=== PATIENT | male | born 1940 | race Caucasian/White ===

== ENCOUNTER → 2016-08-06 | Outpatient (CLI) | payer OTHER, MEDICARE ==
[~2016-08-06] MED LIST: ADVIL PM CAPLE1 EACH PO; ASPIR 8181 MG PO; ASPIRIN325 PO; AUGMENTIN 875-1 EACH PO; B & O SUPPRETT1 EAC1 RC; B-100 COMPLEX1 EAC1 PO; CALCIUM 500 +1 EAC5 PO; CIPROFLOXACIN500 M1 PO; CO Q-10100 MG PO; CO-ENZYME Q-1010 MG PO; FISH OIL 1,0001 EAC5 PO; GLUCOSAMINE &1 EAC1 PO; HYDROCODON-ACE1 EAC7 PO; IBUPROFEN 200200 M1 PO; LYRICA 50 MG50 MG PO; LYRICA 75 MG CA75 MG PO; MULTIVITAMINS PO; NEURONTIN 300300 M1 PO; NORCO 5-325 TA1 EACH PO; NORVASC 5 MG TAB5 MG PO; PLAVIX 75 MG TA75 M1 PO; PROBIOTIC1 EAC1 PO; SIMVASTATIN10 MG PO; SIMVASTATIN5 MG PO; TAMSULOSIN HCL0.4 M1 PO; VITAMIN D1000 UNI1 PO
--- NOTE | ~2016-08-06 | EKG ---
[address] [address] ELECTROCARDIOGRAM REPORT Name: TANO GUSMAN [id number] Admission: 08/06/16 Attend Phys: Elise Azul MD Discharge: Date of : 42 Report #: [id number] THIS REPORT FOR: //name// [facility] Test Date: 2016-08-06 Test Time: 16:33:12 Pat Name: TANO GUSMAN Department: Room: Gender: Senior Cost Analyst: Maranda MORENO : 1940 Requested By: Elise Azul Order Number: [id number] MD: Mohan Edwards Measurements Intervals [place] Rate: 47 P: 42 LA: 207 QRS: 56 QRSD: 107 T: 47 QT: 430 QTc: 381 Interpretive Statements Sinus bradycardia Probable left atrial enlargement Compared to ECG 03/25/2013 12:17:17 No significant change was found Electronically Signed On 08-07-2016 8:53:43 CDT by Mohan Edwards [email or web address] <ELECTRONICALLY SIGNED> By: Mohan Edwards MD, [facility] 08/07/16 0853 D: 04/1632 32 Mohan Edwards MD, FACC /EPI
== END ==
LOC: CV 16:04
DX: Z01.818 Encounter for other preprocedural examination (principal)

== ENCOUNTER → 2019-04-05 | Outpatient (CLI) | payer OTHER, MEDICARE ==
[~2019-04-05] VITALS: Ht 185.4 cm; Wt 100.4 kg
[~2019-04-05] MED LIST changes: +DIOVAN160 MG PO; +FINASTERIDE5 MG PO; -NORVASC 5 MG TAB5 MG PO; +NORVASC10 MG PO; +PROTONIX40 M1 PO
[2019-04-05 10:27] VITALS: BP 124/69
--- NOTE | 2019-04-05 10:43 | NUR ---
Pain Clinic Assessment: 1. History of Osteoarthritis: SPINE History of Rheumatoid Arthritis: NO 2. Height: 6 ft. 1 in. 185.4 cm. Weight: 221.4 lb. oz. 100.427 kg. Patient's BMI: 29.2 3. Vital Signs: BP: 124/69 Pulse: 59 Resp: 16 Temp: 02 Sat: 98 ECG Mon: 4. Pain Intensity: 4-5 5. Fall Risk: Dizziness: N Needs help standing or walking: N Fallen in the last 3 months: N Fall risk comments: 6. Patient on Blood Thinner: None 7. History of Hypertension: Y 8. Opioid Therapy greater than 6 weeks: N Opiate Contract Signed: 9. Risk Assessment Tool Provided: 10. Functional Assessment Tool: 11. Recreational Drug Use: Never Drug Type: Tobacco Use: Never Smoker Tobacco Type: Amount or Packs/day: How Many Years: Alcohol Use: Yes Frequency: Daily Quant: GLASS OF WINE
--- NOTE | 2019-04-06 12:06 | HPC ---
[facility] [address] [place] [address] PAIN MANAGEMENT CONSULTATION Name: TANO GUSMAN Room #: [facility].#: [id number] Admission: 04/05/19 Attend Phys: Daryl Cruz DO Discharge: Date of : 42 Report #: [id number] THIS REPORT FOR: //name// CC: LYSSA Cruz DATE OF SERVICE: 04/05/2019 CHIEF COMPLAINT: Low back pain, left lower extremity pain with paresthesias. HISTORY OF PRESENT ILLNESS: As you know, patient is a 78-year-old male who returns today in followup visit with recurrent low back pain, left lower extremity pain with paresthesias. The patient reports previous epidural injection provided, 10/19/2018 gave 89% improvement in overall pain lasting for 5-1/2 months. He returns today in followup visit requesting to undergo next in the series of epidural injections to address residual pain for which he places pain score at 4-5/10. The patient states his pain is chronic in nature, dull, stiffness, numbness and tingling when describing pain. He indicates pain is exacerbated with activities, getting out of bed and standing, improves with repositioning, sitting and previous epidural injection. He returns today to undergo a lumbar epidural injection to address recurrent lumbar radicular pain. ALLERGIES: No known drug allergies. CURRENT MEDICATIONS: See chart. SOCIAL HISTORY: The patient denies tobacco, alcohol, IV or illicit drug use. He is retired, retired years ago, unaccompanied today. IMAGING: No new imaging available. PQRS: The patient has known arthritic changes of the cervical spine, lumbar spine, bilateral hips, but suffers from no rheumatoid arthritis. He is placing his current pain score at 4-5/10. He is not a fall risk, has not had a fall in last 3 months. He is not on blood thinners, but is treated for hypertension. He is not on chronic opioids and has a low opioid addiction potential based on our assessment tool. Pain impact score is 25/70 indicating [id number]-dsrmnyil interference of daily activities secondary to pain. PHYSICAL EXAMINATION: VITAL SIGNS: Blood pressure 124/69, pulse 59, respiratory rate 16 and unlabored. The patient is 98% on room air, height 6 feet 1 inch tall, weight 221.4 pounds, BMI calculated 29.2. GENERAL: Well-developed, well-nourished, well-hydrated, 78-year-old male. He appears stated age, pain is rated today 4-5/10. [place] [address] PAIN MANAGEMENT CONSULTATION Name: TANO GUSMAN Room #: [facility]#: [id number] Admission: 04/05/19 Attend Phys: Daryl Cruz DO Discharge: Date of : 42 Report #: [id number] HEENT: Normocephalic, atraumatic. Pupils equal, round, reactive to light. EXTREMITIES: Show no clubbing, no cyanosis, and no edema. MUSCULOSKELETAL: Thee's test remains negative. Seated straight leg raising negative. Supine straight leg raising positive on the left. Modified Gaenslen is positive for axial low back pain, lower extremity strength appears symmetrical. ASSESSMENT: 1. Symptomatic lumbar radiculopathy. 2. 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 3. Displacement of lumbar intervertebral disk with radiculopathy. 4. Lumbosacral spondylosis with radiculopathy. 5. Facet arthropathy of the lumbar spine. 6. Lumbar degeneration. 7. Chronic intractable pain. PLAN: 1. The patient returns today in followup visit indicating an 89% improvement in overall pain with the epidural injection provided in 10/2018. He has had 5-1/2 months' worth of improvement in pain, but unfortunately his symptoms have begun to return. He returns today in followup visit to undergo next in the series of lumbar epidural injections. The patient denies injury or trauma that may have led to symptom reoccurrence. He has been advised risks and benefits of the procedure, states understood and wished to proceed. 2. No medication changes made at today's visit. The patient will continue current medical therapy as previously prescribed. 3. We will see the patient back in followup visit on an as needed basis for possible next in a series of lumbar epidural injections. PROCEDURE NOTE DESCRIPTION OF PROCEDURE: L4-L5 left paramedian epidural steroid injection under fluoroscopic guidance. This is the second procedure of the first series that the patient is undergoing. After obtaining written consent, the patient was taken back to the fluoroscopy suite, placed in a prone position with pillow under the abdomen to decrease lumbar lordosis. The skin overlying the lumbosacral area was then prepped and draped in aseptic fashion. The L4-5 vertebral interspace was then identified by AP fluoroscopy. The skin and subcutaneous tissue overlying the target site of injection was anesthetized with 3 mL 1% lidocaine. A 20 gauge 3-1/2 inch Tuohy needle was then advanced under fluoroscopic guidance towards the epidural space using a left paramedian approach. The epidural space was identified using loss of resistance to air technique. After negative [address] [address] PAIN MANAGEMENT CONSULTATION Name: TANO GUSMAN Room #: [facility]#: [id number] Admission: 04/05/19 Attend Phys: Daryl Cruz DO Discharge: Date of : 42 Report #: [id number] aspiration for heme or cerebrospinal fluid, a total of 1 mL of Omnipaque was injected. A lumbar epidurogram was confirmed using both AP and lateral fluoroscopy. After negative aspiration for heme or cerebrospinal fluid, 5 mL of a solution containing 2 mL 40 mg per mL, 80 mg total triamcinolone along with 3 mL lidocaine 1% was injected in increments. Contrast spread was noted posterior epidural space. The needle was then retracted approximately half way and needle tract flushed with 1 mL of 1% lidocaine. Needle was then removed. There were no apparent sensory or motor deficits in the lower extremity following the procedure. A sterile bandage was placed over the injection site. The heart rate, pulse, oximetry and blood pressure were continuously monitored after the procedure. There were no apparent complications. The patient tolerated the procedure well and was carefully escorted to the recovery room in stable condition. There were no apparent complications. After meeting discharge criteria, the patient was then discharged home. <ELECTRONICALLY SIGNED> By: Daryl Cruz DO 04/06/19 1206 [id number] Daryl Cruz DO /nt
== END | disposition home or self-care (01) ==
LOC: PAIN 08:25
DX: M51.16 Intervertebral disc disorders with radiculopathy, lumbar region (principal); M48.061 Spinal stenosis, lumbar region without neurogenic claudication; M47.26 Other spondylosis with radiculopathy, lumbar region; M47.27 Other spondylosis with radiculopathy, lumbosacral region; G89.29 Other chronic pain; M19.90 Unspecified osteoarthritis, unspecified site; I10 Essential (primary) hypertension; Z98.890 Other specified postprocedural states; Z79.899 Other long term (current) drug therapy; Z79.82 Long term (current) use of aspirin

== ENCOUNTER → 2019-08-23 | Outpatient (CLI) | payer OTHER, MEDICARE ==
[~2019-08-23] VITALS: Ht 185.4 cm; Wt 98.0 kg
--- NOTE | ~2019-08-23 | HPC ---
[facility] [address] [place] [address] PAIN MANAGEMENT CONSULTATION Name: TANO GUSMAN [facility] [id number] Admission: 08/23/19 Attend Phys: Daryl Cruz DO Discharge: Date of : 42 Report #: [id number] THIS REPORT FOR: cc: Hammad Lake MD,Daryl Cruz MD, DO ~ CC: Marcio Cruz DATE OF SERVICE: 08/23/2019 CHIEF COMPLAINT: Low back pain, left lower extremity pain with paresthesias. HISTORY OF PRESENT ILLNESS: As you know, the patient is a 79-year-old male who returns today in followup visit with continued low back pain, left lower extremity pain with paresthesias. The patient is reporting what appears to be neurogenic claudication. He is having difficulty climbing stairs due to perceived weakness in the left side. He does have giveaway strength based on his report on the left when compared to the right, specifically with hip flexion and knee extension. The patient has had previous imaging, which showed severe central canal stenosis in the lumbar spine and has sought evaluation from Neurosurgery. He underwent an epidural injection at our clinic in 03/2019 prior to his trip to [place] where he spends the winter. He just recently returned requesting next in the series of epidural injections. He is placing his current pain score 7-8/10. He denies new injury or trauma. He states he is having more difficulty with ambulating now than he did in March and thus this has prompted an appointment with his r[facility] as he is concerned that there may be some vascular issues involved. He also has appointment with his neurosurgeon in 2 weeks for concern of central canal stenosis. He returns today to discuss the source of his symptoms and treatment options. ALLERGIES: No known drug allergies. CURRENT MEDICATIONS: Valsartan 160 mg once a day, finasteride 5 mg once a day, aspirin 81 mg per day, simvastatin 10 mg per day, Advil PM 1 tablet p.o. at bedtime, multivitamin 1 tab per day, amlodipine 10 mg per day. SOCIAL HISTORY: The patient denies tobacco, alcohol, IV or illicit drug use. He is retired, retired years ago. He is unaccompanied today. IMAGING: No new imaging available. PQRS: The patient has known arthritic changes of the cervical spine, lumbar spine, bilateral hips and mildly in the bilateral knees. No rheumatoid arthritis. He is placing current pain score at 7-8/10. He is not a fall risk, [place] [address] PAIN MANAGEMENT CONSULTATION Name: TANO GUSMAN Room #: REG [facility] Pasha#: [id number] Admission: 08/23/19 Attend Phys: Daryl Cruz DO Discharge: Date of : 42 Report #: [id number] has not had a fall in last 3 months. He is not on blood thinners, but is treated for hypertension. He is not on chronic opioids and has a low opioid addiction potential. Pain impact scores is 30 of 70, mild interference to moderate interference of daily activities secondary to pain. PHYSICAL EXAMINATION: VITAL SIGNS: Blood pressure 117/69, pulse 49, respiratory rate 14 and unlabored. The patient is 97% on room air, height 6 feet 1 inch tall, weight 216 pounds, BMI calculated 28.5. GENERAL: Well-developed, well-nourished, well-hydrated 79-year-old male appearing stated age. He is awake, alert and oriented x 3. Current pain score 7-8/10. HEENT: Normocephalic, atraumatic. Pupils equal, round, reactive to light. EXTREMITIES: Show no clubbing, no cyanosis, and no edema. MUSCULOSKELETAL: There is noted decreased hair growth bilaterally in lower extremities, though there are no rashes, lesions, ulcerations or changes in skin concerning vascular insufficiency. MUSCULOSKELETAL: Seated straight leg raising is positive. Supine straight leg raising positive on the left. Thee's test is negative. Gait is antalgic favoring left lower extremity over right. There is noted weakness with hip flexion, knee extension on the left when compared to the right. There are changes in muscle tone and bulk when comparing left lower extremity to right, mainly in the quadriceps. ASSESSMENT: 1. Symptomatic lumbar radiculopathy. 2. Marked and progressively worsening spinal stenosis of the lumbar spine. 3. Displacement of lumbar intervertebral disk with radiculopathy. 4. Lumbosacral spondylosis with radiculopathy. 5. Facet arthropathy of the lumbar spine. 6. Chronic intractable pain. PLAN: 1. The patient returns today in followup visit where we have reviewed in its entirety, his MRI from 10/08/2018 which showed marked central canal stenosis at the L3-L4 level and arthritic changes noted at L3-L4, L4-L5 and L5-S1. The source of the patient's symptoms appears to be the central canal stenosis at the L3-L4 level, which is consistent with his changes in the left lower extremity strength and sensation. The patient and I discussed at length the findings of the MRI and then discussed the treatment options available. Following was discussed with the patient today. We discussed physical therapy, stretching exercises and core strengthening as a treatment option to assist in continuing to maintain strength in the left lower extremity, but also to improve pain. We discussed medication management, adding neuropathic pain medication for the neuropathy and possible low dose opioid for [facility] [address] [place] [address] PAIN MANAGEMENT CONSULTATION Name: TANO GUSMAN Room #: [facility].#: [id number] Admission: 08/23/19 Attend Phys: Daryl Cruz DO Discharge: Date of : 42 Report #: [id number] pain control for pain consideration. We discussed epidural injection under fluoroscopic guidance, which have provided good benefit in the past. We also discussed surgical options, which may ultimately be necessary at this time. After reviewing the risks and benefits of all the proposed treatment options, the patient chose to begin with an epidural injection under fluoroscopic guidance. The patient has been advised risks and benefits of a lumbar epidural injection. These risks include but are not necessarily limited to bleeding, bruising, infection, worsening pain, no relief of pain, also risk of temporary or permanent muscle weakness, temporary or permanent nerve damage, possible paralysis and . The patient states understood and wished to proceed. The patient has been advised that based on BRENDA guidelines, restrictions are recommended with a steroid exposure and the COVID virus. The patient was advised that he does run the risk of possible increased chance of meliza COVID virus due to the reduction of immune response with steroid injections. He is also advised that he may run worsening of symptoms of COVID if he is currently infected with COVID and receives the steroid exposure. The patient states he understands risk in regards to COVID and wishes to proceed. 2. No medication changes made at today's visit. The patient will continue current medical therapy as previously prescribed. 3. We will see the patient back in followup visit on an as needed basis for possible next in the series of epidural injections. I have recommended the patient follow up with his rn wom[facility] as he does have concerns of vascular claudication in the lower extremities. The patient is a known vasculopath requiring open heart surgery and percutaneous stenting, though given the findings in physical exam, I do not feel his symptoms in the lower extremities are related to vascular insufficiency, but more appear to be a neurogenic claudication. He will follow up with his rn womens health next week and his neurosurgeon the week following to discuss options for treatment based on their perspective of his lower extremity symptoms. PROCEDURE NOTE: DESCRIPTION OF PROCEDURE: L4-L5 interlaminar epidural steroid injection under fluoroscopic guidance. After obtaining written consent, the patient was taken back to fluoroscopy suite, placed in prone position with pillow under abdomen to decrease lumbar lordosis. Skin overlying lumbosacral area then prepped and draped in aseptic fashion. The L4-L5 vertebral interspace was identified by AP fluoroscopy. Skin and subcutaneous tissue overlying target site injection anesthetized with 3 mL of 1% lidocaine. A 20-gauge 3-1/2 inch Tuohy needle advanced [place] [address] PAIN MANAGEMENT CONSULTATION Name: TANO GUSMAN Room #: [facility] Pasha#: [id number] Admission: 08/23/19 Attend Phys: Daryl Cruz DO Discharge: Date of : 42 Report #: [id number] the epidural space using a parasagittal approach. The epidural space identified using loss of resistance to air technique. After negative aspiration for heme or cerebrospinal fluid, 1 mL of Omnipaque injected. Lumbar epidurogram confirmed using both AP and lateral fluoroscopy. After negative aspiration for heme or cerebrospinal fluid, 5 mL of a solution containing 2 mL 40 mg per mL, 80 mg total triamcinolone along with 3 mL lidocaine 1% injected slowly. Needle then retracted approximately half way, flushed with 1 mL of 1% lidocaine and then removed. Sterile bandage placed over injection site. There were no new motor deficits present in lower extremity following procedure. The patient tolerated procedure well, carefully escorted to recovery room in stable condition. No apparent complications. After meeting discharge criteria, the patient discharged home. By: [id number] Daryl Cruz DO /nt
[2019-08-23 12:58] VITALS: BP 117/69
--- NOTE | 2019-08-23 13:13 | NUR ---
Pain Clinic Assessment: 1. History of Osteoarthritis: SPINE History of Rheumatoid Arthritis: NO 2. Height: 6 ft. 1 in. 185.4 cm. Weight: 216.0 lb. oz. 97.977 kg. Patient's BMI: 28.5 3. Vital Signs: BP: 117/69 Pulse: 49 Resp: 14 Temp: 02 Sat: 97 ECG Mon: 4. Pain Intensity: 7-8 5. Fall Risk: Dizziness: N Needs help standing or walking: N Fallen in the last 3 months: N Fall risk comments: 6. Patient on Blood Thinner: None 7. History of Hypertension: Y 8. Opioid Therapy greater than 6 weeks: N Opiate Contract Signed: 9. Risk Assessment Tool Provided: 10. Functional Assessment Tool: 11. Recreational Drug Use: Never Drug Type: Tobacco Use: Never Smoker Tobacco Type: Amount or Packs/day: How Many Years: Alcohol Use: Yes Frequency: Quant:
== END | disposition home or self-care (01) ==
LOC: PAIN 06:54
DX: M51.16 Intervertebral disc disorders with radiculopathy, lumbar region (principal); M48.061 Spinal stenosis, lumbar region without neurogenic claudication; M47.27 Other spondylosis with radiculopathy, lumbosacral region; M47.26 Other spondylosis with radiculopathy, lumbar region; G89.29 Other chronic pain; Z98.890 Other specified postprocedural states; Z79.899 Other long term (current) drug therapy

== ENCOUNTER 2019-08-27 18:57 | Emergency (ER) | payer OTHER, MEDICARE ==
[~2019-08-27] VITALS: Ht 182.9 cm; Wt 86.2 kg
[2019-08-27 19:53] VITALS: BP 155/73
== END 2019-08-27 19:53 | disposition home or self-care (01) ==
LOC: ER 18:57
DX: I10 Essential (primary) hypertension (principal); E78.00 Pure hypercholesterolemia, unspecified; Z79.899 Other long term (current) drug therapy; Z95.1 Presence of aortocoronary bypass graft; Z98.890 Other specified postprocedural states; Z90.49 Acquired absence of other specified parts of digestive tract

== ENCOUNTER → 2020-09-11 | Outpatient (CLI) | payer OTHER, MEDICARE ==
[~2020-09-11] VITALS: Ht 185.4 cm; Wt 100.8 kg
[~2020-09-11] MED LIST changes: +ISOSORBIDE DINI20 M2 PO; -SIMVASTATIN10 MG PO; +VALSARTAN-HCTZ1 EAC3 PO; +ZOCOR 10 MG TAB10 M1 PO
[2020-09-11 09:54] VITALS: BP 111/48
--- NOTE | 2020-09-11 10:17 | NUR ---
Pain Clinic Assessment: 1. History of Osteoarthritis: SPINE History of Rheumatoid Arthritis: NO 2. Height: 6 ft. 1 in. 185.4 cm. Weight: 222.2 lb. oz. 100.789 kg. Patient's BMI: 29.3 3. Vital Signs: BP: 111/48 Pulse: 54 Resp: 14 Temp: 02 Sat: 100 ECG Mon: 4. Pain Intensity: 2 5. Fall Risk: Dizziness: N Needs help standing or walking: N Fallen in the last 3 months: N Fall risk comments: 6. Patient on Blood Thinner: None 7. History of Hypertension: Y 8. Opioid Therapy greater than 6 weeks: N Opiate Contract Signed: 9. Risk Assessment Tool Provided: 10. Functional Assessment Tool: 11. Recreational Drug Use: Never Drug Type: Tobacco Use: Never Smoker Tobacco Type: Amount or Packs/day: How Many Years: Alcohol Use: Yes Frequency: Daily Quant: 1
--- NOTE | 2020-09-12 08:22 | HPC ---
[facility] [place] [address] PAIN MANAGEMENT CONSULTATION Name: TANO GUSMAN Room #: REG [facility].#: [id number] Admission: 09/11/20 Attend Phys: Daryl Cruz DO Discharge: Date of : 42 Report #: [id number] THIS REPORT FOR: cc: Hammad Lake MD,Daryl Cruz MD, DO ~ DOC #: [id number] cc: MD Daryl Barrera DO DATE OF SERVICE: 09/11/2020 CHIEF COMPLAINT: Low back pain, left lower extremity pain with paresthesias. HISTORY OF PRESENT ILLNESS: As you know, the patient is a pleasant 80-year-old male returning in followup visit with recurrence of low back pain, left lower extremity pain with paresthesias. He reports previous epidural injection provided at our last visit gave improvement in symptoms of 100%, lasting for 3 months with a slow and progressive return of symptoms. He returns today in followup visit to undergo next in the series of epidural injections. The patient denies any injury or trauma that may have led to symptom reoccurrence. He is placing current pain score 2/10. He requests a lumbar epidural injection to address lumbar radicular symptoms that have reoccurred. He has undergone surgery to address lumbar radicular pain, but his symptoms have reoccurred. ALLERGIES: No known drug allergies. CURRENT MEDICATIONS: Isosorbide dinitrate 20 mg once a day, valsartan/hydrochlorothiazide 320/25 mg once a day, finasteride 5 mg per day, aspirin 81 mg per day, Zocor 10 mg once a day, multivitamin one tab per day, amlodipine 10 mg per day. SOCIAL HISTORY: The patient denies tobacco, alcohol, or IV or illicit drug use. He is retired, retired years ago, unaccompanied today. IMAGING: No new imaging available. PQRS: The patient has known arthritic changes of the cervical spine, lumbar spine, bilateral hips, and knees. No rheumatoid arthritis. He is placing current pain score at 2/10. He is not a fall risk, has not had a fall in last 3 months, not on blood thinners, but is treated for hypertension. He is not on opioids and has a low opiate addiction potential. Pain impact today 35/70, moderate interference of daily activities secondary to pain. PHYSICAL EXAMINATION: VITAL SIGNS: Blood pressure 111/48, pulse is 54, respiratory rate 14 and unlabored. He is 100% on room air, height 6 feet 1 inches tall, weight 222.2 [place] [id number] PAIN MANAGEMENT CONSULTATION Name: TANO GUSMAN Room #: REG [facility] M..#: [id number] Admission: 09/11/20 Attend Phys: Daryl Cruz DO Discharge: Date of : 42 Report #: [id number] pounds, BMI calculated 29.3. GENERAL: Well-developed, well-nourished, well-hydrated 80-year-old male appearing stated age, placing current pain score at 2/10. HEENT: Normocephalic, atraumatic. Pupils equal, round and responsive. Speech is fluent. The patient deemed a good historian. He is wearing a mask in compliance with COVID-19 regulations. EXTREMITIES: Show no clubbing, no cyanosis. No appreciable edema. MUSCULOSKELETAL: Seated straight leg raising is positive on the left. Supine straight leg raising positive on the left. Thee's test is negative. Modified Gaenslen's positive for axial low back pain. Ankle clonus negative. Babinski is negative. Muscle bulk and tone is symmetrical in lower extremities. ASSESSMENT: 1. Symptomatic lumbar radiculopathy. 2. Marked and progressively worsening spinal stenosis of lumbar spine. 3. Displacement of lumbar intervertebral disk with radiculopathy. 4. Lumbosacral spondylosis with radiculopathy. 5. Facet arthropathy, lumbar spine. 6. Chronic intractable pain. PLAN: 1. The patient returns today in followup visit to undergo lumbar epidural injection under fluoroscopic guidance to address recurrent lumbar radicular pain. The patient reports no injury or trauma that may have led to symptom reoccurrence. He has been advised of the risks and the benefits of a lumbar epidural injection. These risks include, but are not necessarily limited to, bleeding, bruising, infection, worsening pain, no relief of pain, risk of temporary or permanent muscle weakness, temporary or permanent nerve damage, possible paralysis, and . The patient states understood and wished to proceed. 2. No medication changes made at today's visit. The patient will continue current medical therapy as prior prescribed. 3. We plan to see the patient back in followup visit on an as-needed basis for the next in the series of lumbar epidural injections. We are hopeful the patient will see good and prolonged benefit with today's epidural injection. DESCRIPTION OF PROCEDURE: L5-S1 left parasagittal epidural steroid injection under fluoroscopic guidance. After obtaining written consent, the patient was taken back to fluoroscopy suite, placed in prone position with pillow under abdomen to decrease lumbar lordosis. Skin overlying lumbosacral area prepped and draped in aseptic fashion. The L5-S1 vertebral interspace identified by AP fluoroscopy. Skin and subcutaneous tissue overlying target site of injection were anesthetized with 3 mL of 1% lidocaine. [facility] [address] [place] [address] PAIN MANAGEMENT CONSULTATION Name: TANO GUSMAN Room #: [facility].#: [id number] Admission: 09/11/20 Attend Phys: Daryl Cruz DO Discharge: Date of : 42 Report #: [id number] A 20 gauge 3-1/2 inch Tuohy needle advanced under fluoroscopic guidance towards the epidural space using a left parasagittal approach. Epidural space identified using loss of resistance to air technique. After negative aspiration for heme or cerebrospinal fluid, 1 mL of Omnipaque injected. Lumbar epidurogram confirmed using both AP and lateral fluoroscopy. After negative aspiration for heme or cerebrospinal fluid, 5 mL of a solution containing 2 mL 40 mg per mL 80 mg total triamcinolone along with 3 mL of lidocaine, 1% injected slowly. Needle retracted longterm, flushed with 1 mL of 1% lidocaine and then removed. Sterile bandage placed over injection site. No new motor deficits present in the lower extremities following procedure. The patient tolerated the procedure well, carefully escorted to recovery room in stable condition. No apparent complications. After meeting discharge criteria, the patient discharged home. Daryl Cruz DO JEJ/VIS <ELECTRONICALLY SIGNED> By: Daryl Cruz DO 09/12/20 0822 [id number] Daryl Cruz DO /lauryn
== END | disposition home or self-care (01) ==
LOC: PAIN 07:16
PROVIDERS: ATTEND Anesthesiology Pain Medicine
DX: M51.16 Intervertebral disc disorders with radiculopathy, lumbar region (principal); M48.061 Spinal stenosis, lumbar region without neurogenic claudication; M47.27 Other spondylosis with radiculopathy, lumbosacral region; M47.26 Other spondylosis with radiculopathy, lumbar region; G89.29 Other chronic pain; I10 Essential (primary) hypertension; M19.90 Unspecified osteoarthritis, unspecified site; Z98.890 Other specified postprocedural states; Z79.899 Other long term (current) drug therapy

== ENCOUNTER → 2020-10-09 | Outpatient (CLI) | payer OTHER, MEDICARE | LOC: SJCVC 11:11 | PROVIDERS: ATTEND Internal Medicine | DX: I44.0 Atrioventricular block, first degree (principal); R00.1 Bradycardia, unspecified; I25.10 Atherosclerotic heart disease of native coronary artery without angina pectoris; R06.00 Dyspnea, unspecified; I10 Essential (primary) hypertension; G47.33 Obstructive sleep apnea (adult) (pediatric); I73.9 Peripheral vascular disease, unspecified; I70.0 Atherosclerosis of aorta; E78.5 Hyperlipidemia, unspecified; Z95.1 Presence of aortocoronary bypass graft; Z79.82 Long term (current) use of aspirin; Z79.899 Other long term (current) drug therapy; Z82.49 Family history of ischemic heart disease and other diseases of the circulatory system ==

== ENCOUNTER → 2020-11-02 | Outpatient (CLI) | payer OTHER, MEDICARE | LOC: SJCVCIMAG 07:25 | PROVIDERS: ATTEND Internal Medicine | DX: I08.0 Rheumatic disorders of both mitral and aortic valves (principal); I70.0 Atherosclerosis of aorta; R06.00 Dyspnea, unspecified; M79.604 Pain in right leg; M79.605 Pain in left leg; I25.10 Atherosclerotic heart disease of native coronary artery without angina pectoris; I10 Essential (primary) hypertension; I73.9 Peripheral vascular disease, unspecified; Z79.82 Long term (current) use of aspirin; Z79.899 Other long term (current) drug therapy ==

== ENCOUNTER 2020-11-03 12:04 | Emergency (ER) | payer OTHER, MEDICARE ==
[~2020-11-03] VITALS: Ht 185.4 cm; Wt 93.0 kg
[2020-11-03 12:51] LABS: BASOPHILS 0.6 % (0.0-2.0); EOSINOPHILS 1.9 % (0.0-3.0); HEMATOCRIT 36.9 % (42.0-52.0); HEMOGLOBIN 12.6 gm/dL (14.0-18.0); LYMPHOCYTES 17.6 % (24.0-44.0); MCH 33.5 pg (26.0-34.0); MCV 98.6 fL (80.0-100.0); MONOCYTES 8.1 % (1.0-8.0); PLATELET COUNT 293 thou/uL (150-400); POLYS 71.8 % (36.0-66.0); RBC 3.75 mil/uL (4.50-6.00); RDW 12.5 % (10.5-14.5); WBC 5.6 thou/uL (4.0-11.0)
[2020-11-03 13:12] LABS: CALCIUM 8.6 mg/dL (8.5-10.1); CREATININE 1.8 mg/dL (0.7-1.3); POTASSIUM 4.5 mmol/L (3.5-5.1)
[2020-11-03 13:17] LABS: ALBUMIN 3.6 g/dL (3.4-5.0); TOTAL BILIRUBIN 0.9 mg/dL (0.2-1.0); TOTAL PROTEIN 6.8 g/dL (6.4-8.2)
[2020-11-03 15:30] VITALS: BP 125/67
== END 2020-11-03 15:30 | disposition home or self-care (01) ==
LOC: ER 12:04
PROVIDERS: Emergency Medicine
DX: R19.7 Diarrhea, unspecified (principal); I10 Essential (primary) hypertension; E78.00 Pure hypercholesterolemia, unspecified; Z95.1 Presence of aortocoronary bypass graft; Z87.898 Personal history of other specified conditions; Z79.82 Long term (current) use of aspirin; Z79.1 Long term (current) use of non-steroidal anti-inflammatories (NSAID); Z79.899 Other long term (current) drug therapy

== ENCOUNTER → 2020-11-30 | Outpatient (CLI) | payer OTHER, MEDICARE | LOC: SJCVC 11:42 | PROVIDERS: ATTEND Internal Medicine | DX: I49.1 Atrial premature depolarization (principal); I25.10 Atherosclerotic heart disease of native coronary artery without angina pectoris; I10 Essential (primary) hypertension; R06.00 Dyspnea, unspecified; G47.33 Obstructive sleep apnea (adult) (pediatric); E78.5 Hyperlipidemia, unspecified; I70.0 Atherosclerosis of aorta; I73.9 Peripheral vascular disease, unspecified; Z95.1 Presence of aortocoronary bypass graft; Z98.890 Other specified postprocedural states; Z90.49 Acquired absence of other specified parts of digestive tract; Z98.61 Coronary angioplasty status; Z79.82 Long term (current) use of aspirin; Z79.899 Other long term (current) drug therapy; Z82.49 Family history of ischemic heart disease and other diseases of the circulatory system ==

== ENCOUNTER → 2020-12-17 | Outpatient (CLI) | payer OTHER, MEDICARE | LOC: SJCVCIMAG 07:19 | PROVIDERS: ATTEND Internal Medicine | DX: E85.4 Organ-limited amyloidosis (principal); I43 Cardiomyopathy in diseases classified elsewhere; I25.10 Atherosclerotic heart disease of native coronary artery without angina pectoris; R06.00 Dyspnea, unspecified; I10 Essential (primary) hypertension; G47.33 Obstructive sleep apnea (adult) (pediatric); E78.5 Hyperlipidemia, unspecified; I73.9 Peripheral vascular disease, unspecified; I70.0 Atherosclerosis of aorta; Z72.89 Other problems related to lifestyle; Z79.82 Long term (current) use of aspirin; Z79.899 Other long term (current) drug therapy ==

== ENCOUNTER → 2021-04-01 | Outpatient (CLI) | payer OTHER, MEDICARE | LOC: SJCVC 13:14 | PROVIDERS: ATTEND Internal Medicine | DX: I49.1 Atrial premature depolarization (principal); I25.10 Atherosclerotic heart disease of native coronary artery without angina pectoris; I10 Essential (primary) hypertension; R06.00 Dyspnea, unspecified; G47.33 Obstructive sleep apnea (adult) (pediatric); E78.5 Hyperlipidemia, unspecified; I73.9 Peripheral vascular disease, unspecified; Z95.1 Presence of aortocoronary bypass graft; I70.0 Atherosclerosis of aorta; Z98.1 Arthrodesis status; Z98.890 Other specified postprocedural states; Z79.82 Long term (current) use of aspirin; Z79.899 Other long term (current) drug therapy ==